=== PATIENT | female | born 1990 | race Caucasian/White ===

== ENCOUNTER → 2019-06-07 15:05 | Outpatient (CLI) | payer MEDICAID, SELFPAY ==
--- NOTE | 2019-06-07 15:22 | RAD_ITS ---
STUDY: X-RAY - RIGHT FOOT CLINICAL: Heel pain. TECHNIQUE: 3 view(s) of the foot. COMPARISON: None. FINDINGS: Normal talus, calcaneus, and tarsal bones. Normal visualized subtalar, talonavicular, calcaneocuboid, tarsal and tarsometatarsal articulations. Normal metatarsi. Normal metatarsophalangeal joint of the great toe. Normal tibial and fibular sesamoid bones. Normal interphalangeal joint of the great toe. Normal phalanges of the great toe. Normal second through fifth metatarsophalangeal joints. There are hammertoe deformities of the second through fifth digits. The soft tissue structures are unremarkable. RAD/Foot min 3 Views IMPRESSION: Hammertoe deformities. Otherwise, unremarkable x-ray examination of the right foot. Electronically Signed: Rober Green MD at 13:28 EST Tel , Service support ,
== END ==
PROVIDERS: Family Provider Internal Medicine; PCP Internal Medicine; Referring Provider Internal Medicine; Visit Provider Internal Medicine
DX: M79.671 Pain in right foot (principal)
CPT/HCPCS: 73630